=== PATIENT | female | born 1930 | race Caucasian/White ===

== ENCOUNTER 2017-07-22 07:27 | Inpatient (IN) | payer MEDICARE, MEDICAID ==
[~2017-07-22] VITALS: Ht 137.2 cm; Wt 56.2 kg
[2017-07-22 08:31] LABS: HEMOGLOBIN. 9.4 g/dL (12.0-16.0); MEAN CORPUSCULAR HEMOGLOBIN 32.1 pg (28.0-32.0); MEAN CORPUSCULAR VOLUME 96.2 fL (81.0-99.0); MEAN PLATELET VOLUME 7.9 fl (7.4-10.4); PLATELET 111 x1000/uL (130-400); RED BLOOD CELL COUNT 2.92 mill/uL (4.2-5.4); RED CELL DISTRIBUTION WIDTH 14.6 % (11.6-14.6)
[2017-07-22 08:44] LABS: INR 1.1; PARTIAL THROMBOPLASTIN TIME 26.9 sec (23.4-31.0); PROTHROMBIN TIME 11.6 sec (9.4-11.6)
[2017-07-22 08:47] LABS: CARBON DIOXIDE 25 mEq/L (21-32); CHLORIDE 95 mEq/L (98-107); TROPONIN I < 0.02 ng/mL (0.00-0.04)
[2017-07-22 12:15] VITALS: BP 162/46
[2017-07-22 12:30] VITALS: BP 162/46
[2017-07-22] MEDS ORDERED: DOCUSATE SODIUM 100MG CAPSULE PO PRN (15:00)
[2017-07-22] MEDS ORDERED: ONDANSETRON HCL 4MG/2ML VIAL IV PRN (15:00)
[2017-07-22] MEDS ORDERED: LORAZEPAM 2MG/ML CPJ IV PRN (15:00)
[2017-07-22] MEDS ORDERED: MORPHINE SULFATE 10 MG/ML CPJ IV PRN (15:00)
[2017-07-22 16:00] VITALS: BP 175/53
[2017-07-22] MEDS: LISINOPRIL 20MG TABLET PO SCH (16:20)
[2017-07-22] MEDS: THIAMINE HCL 100MG TABLET PO SCH (16:20)
[2017-07-22 17:15] LABS: PLATELET ESTIMATE DECREASED
[2017-07-22] MEDS: HYDROCODONE/ACETAMINOPHEN 5/325MG TABLET PO PRN (19:13)
[2017-07-22] MEDS ORDERED: DEXTROSE 50% WATER 50ML SYRINGE IV PRN (19:30)
[2017-07-22 20:00] VITALS: BP 185/52
[2017-07-22] MEDS: BLOOD SUGAR DIAGNOSTIC STRIP TEST SCH (20:28)
[2017-07-22] MEDS: CLONIDINE 0.1MG TABLET PO PRN (20:31)
[2017-07-22] MEDS: INSULIN LISPRO 100 UNITS/ML SUBCUT SCH (20:32)
[2017-07-22 23:55] VITALS: BP 134/81
[2017-07-23 04:00] VITALS: BP 148/50
[2017-07-23] MEDS: ACETAMINOPHEN 325MG TABLET PO PRN ×2 (04:40→07:39)
[2017-07-23 06:16] LABS: HEMATOCRIT. 27.8 % (36.0-48.0); HEMOGLOBIN. 9.1 g/dL (12.0-16.0); MEAN CORPUSCULAR HEMOGLOBIN 31.9 pg (28.0-32.0); MEAN CORPUSCULAR VOLUME 97.1 fL (81.0-99.0); PLATELET 101 x1000/uL (130-400); RED BLOOD CELL COUNT 2.86 mill/uL (4.2-5.4); RED CELL DISTRIBUTION WIDTH 14.6 % (11.6-14.6)
[2017-07-23] MEDS: BLOOD SUGAR DIAGNOSTIC STRIP TEST SCH ×4 (07:27→20:37)
[2017-07-23] MEDS: INSULIN LISPRO 100 UNITS/ML SUBCUT SCH ×4 (07:28→20:37)
[2017-07-23] MEDS ORDERED: VANCOMYCIN 1 G PREMIX 200 ML IV NR (07:30)
[2017-07-23 07:56] VITALS: BP 95/38
[2017-07-23] MEDS: THIAMINE HCL 100MG TABLET PO SCH (08:16)
[2017-07-23] MEDS: LISINOPRIL 20MG TABLET PO SCH (08:17)
[2017-07-23] MEDS ORDERED: GELATIN SPONGE,ABSORBABLE SZ 100 ONE (09:52)
[2017-07-23] MEDS ORDERED: NORMAL SALINE 0.9% 10 ML SYR ONE (09:53)
[2017-07-23] MEDS ORDERED: BUPIVACAINE HCL/PF 0.5% (5MG/ML) 10ML ONE (09:53)
[2017-07-23] MEDS ORDERED: BACITRACIN ZINC 15GM TUBE TOP ONE (09:53)
[2017-07-23] MEDS ORDERED: THROMBIN (BOVINE) 5000 UNITS/VIAL TOP ONE (09:53)
[2017-07-23] MEDS ORDERED: LIDOCAINE HCL 1% 20ML VIAL (Pyxis) INJ ONE (09:53)
[2017-07-23] MEDS ORDERED: BACITRACIN 50,000 UNITS/VIAL ONE (09:54)
[2017-07-23] MEDS ORDERED: HEPARIN SODIUM 1,000 UNIT/1ML VIAL IV ONE ×2 (10:00→10:28)
[2017-07-23] MEDS ORDERED: FENTANYL CITRATE/PF 50MCG/ML 2ML VIAL ONE (10:58)
[2017-07-23] MEDS ORDERED: ONDANSETRON HCL 4MG/2ML VIAL IV PRN (11:15)
[2017-07-23] MEDS ORDERED: MORPHINE SULFATE 2 MG/ML CPJ (NOT FOR IM USE) IV PRN (11:15)
[2017-07-23] MEDS ORDERED: PROPOFOL 200MG/20ML VIAL IV ONE (12:18)
[2017-07-23 12:55] LABS: PLATELET ESTIMATE DECREASED
[2017-07-23 13:20] VITALS: BP 105/45
[2017-07-23 15:33] VITALS: BP 95/38
[2017-07-23 20:00] VITALS: BP 104/45
[2017-07-24] VITALS (7 sets, daily range): BP systolic 101–189; BP diastolic 35–86
[2017-07-24] MEDS: ACETAMINOPHEN 325MG TABLET PO PRN (04:02)
[2017-07-24 07:05] LABS: MEAN CORPUSCULAR VOLUME 96.9 fL (81.0-99.0); MEAN PLATELET VOLUME 8.3 fl (7.4-10.4); PLATELET 77 x1000/uL (130-400); RED BLOOD CELL COUNT 2.12 mill/uL (4.2-5.4); RED CELL DISTRIBUTION WIDTH 14.4 % (11.6-14.6)
[2017-07-24 07:12] LABS: HEMATOCRIT. 20.5 % (36.0-48.0)
[2017-07-24] MEDS: BLOOD SUGAR DIAGNOSTIC STRIP TEST SCH ×4 (07:40→20:20)
[2017-07-24] MEDS: INSULIN LISPRO 100 UNITS/ML SUBCUT SCH ×4 (08:10→20:21)
[2017-07-24] MEDS: LISINOPRIL 20MG TABLET PO SCH (09:00)
[2017-07-24] MEDS: THIAMINE HCL 100MG TABLET PO SCH (09:00)
[2017-07-24] MEDS ORDERED: LIDOCAINE HCL 1% 20ML VIAL (Pyxis) INJ ONE (10:49)
[2017-07-24] MEDS ORDERED: SODIUM CHLORIDE 0.9% 10ML VIAL ONE (10:49)
[2017-07-24] MEDS ORDERED: SODIUM BICARBONATE 4% (2.4MEQ) 5ML VIAL IV ONE (10:49)
[2017-07-24] MEDS: HYDROCODONE/ACETAMINOPHEN 5/325MG TABLET PO PRN ×2 (13:25→20:20)
[2017-07-24] MEDS: CLONIDINE 0.1MG TABLET PO PRN (20:19)
[2017-07-24] MEDS ORDERED: VANCOMYCIN 1 G PREMIX 200 ML IV SCH (21:00)
[2017-07-24 21:51] LABS: HEMATOCRIT 30.9 % (36.0-48.0); HEMOGLOBIN 10.9 g/dL (12.0-16.0)
[2017-07-24 22:56] LABS: PLATELET ESTIMATE DECREASED
[2017-07-25] VITALS (12 sets, daily range): BP systolic 137–201; BP diastolic 47–65
[2017-07-25 06:01] LABS: HEMATOCRIT. 28.8 % (36.0-48.0); HEMOGLOBIN. 9.9 g/dL (12.0-16.0); MEAN CORPUSCULAR HEMOGLOBIN 32.3 pg (28.0-32.0); MEAN CORPUSCULAR VOLUME 94.1 fL (81.0-99.0); MEAN PLATELET VOLUME 8.7 fl (7.4-10.4); PLATELET 70 x1000/uL (130-400); RED BLOOD CELL COUNT 3.06 mill/uL (4.2-5.4); RED CELL DISTRIBUTION WIDTH 14.4 % (11.6-14.6)
[2017-07-25] MEDS: BLOOD SUGAR DIAGNOSTIC STRIP TEST SCH ×4 (06:13→21:11)
[2017-07-25] MEDS: INSULIN LISPRO 100 UNITS/ML SUBCUT SCH ×4 (07:55→21:00)
[2017-07-25] MEDS: CLONIDINE 0.1MG TABLET PO PRN (09:06)
[2017-07-25] MEDS: THIAMINE HCL 100MG TABLET PO SCH (09:06)
[2017-07-25] MEDS: LISINOPRIL 20MG TABLET PO SCH (09:06)
[2017-07-25] MEDS: ONDANSETRON HCL 4MG/2ML VIAL IV PRN (09:59)
[2017-07-25 10:13] LABS: PLATELET ESTIMATE DECREASED
[2017-07-25] MEDS ORDERED: MORPHINE SULFATE 10 MG/ML CPJ IV PRN (11:00)
[2017-07-25] MEDS ORDERED: LIDOCAINE HCL 1% 20ML VIAL (Pyxis) INJ ONE ×2 (13:30→14:42)
[2017-07-25] MEDS ORDERED: CLINDAMYCIN 600 MG in DEXTROSE 5% WATER 50 ML IV ONE (13:30)
[2017-07-25] MEDS ORDERED: SODIUM BICARBONATE 4% (2.4MEQ) 5ML VIAL IV ONE (13:30)
[2017-07-25] MEDS ORDERED: FENTANYL CITRATE/PF 50MCG/ML 2ML VIAL ONE (14:19)
[2017-07-26] VITALS: BP 101/56
[2017-07-26 04:00] VITALS: BP 136/66
[2017-07-26] MEDS: BLOOD SUGAR DIAGNOSTIC STRIP TEST SCH ×2 (06:21→13:05)
[2017-07-26] MEDS ORDERED: IOHEXOL-300 50 ML BOTTLE IV ONE (07:13)
[2017-07-26 07:33] LABS: HEMATOCRIT. 29.5 % (36.0-48.0); HEMOGLOBIN. 10.1 g/dL (12.0-16.0); MEAN CORPUSCULAR HEMOGLOBIN 32.7 pg (28.0-32.0); MEAN CORPUSCULAR VOLUME 95.7 fL (81.0-99.0); MEAN PLATELET VOLUME 8.3 fl (7.4-10.4); PLATELET 75 x1000/uL (130-400); RED BLOOD CELL COUNT 3.09 mill/uL (4.2-5.4); RED CELL DISTRIBUTION WIDTH 14.5 % (11.6-14.6)
[2017-07-26] MEDS: INSULIN LISPRO 100 UNITS/ML SUBCUT SCH ×2 (07:56→13:05)
[2017-07-26 08:00] VITALS: BP 156/53
[2017-07-26] MEDS: ONDANSETRON HCL 4MG/2ML VIAL IV PRN (09:25)
[2017-07-26] MEDS: LISINOPRIL 20MG TABLET PO SCH (09:26)
[2017-07-26] MEDS: THIAMINE HCL 100MG TABLET PO SCH (09:27)
[2017-07-26 12:00] VITALS: BP 160/59
[2017-07-26 16:00] VITALS: BP 146/52
[2017-07-26 17:23] LABS: PLATELET ESTIMATE DECREASED
[2017-07-26 17:34] VITALS: BP 146/52
== END 2017-07-26 18:35 | disposition home or self-care (01) | DRG 252 ==
LOC: ER 07:27 → EDBEDREQ 08:51 → ENRESERV 09:22 → 7WST 09:52 → SUPCPDRO 10:14 → 7WST 07-24 14:03
PROVIDERS: ADMIT Internal Medicine Nephrology; ATTEND Internal Medicine Nephrology
PROC: 03WY07Z Revision of Autologous Tissue Substitute in Upper Artery, Open Approach (ICD-10-PCS; 2017-07-23)
PROC: 5A1D70Z Performance of Urinary Filtration, Intermittent, Less than 6 Hours Per Day (ICD-10-PCS; principal; 2017-07-23 09:30)
PROC: 5A1D70Z Performance of Urinary Filtration, Intermittent, Less than 6 Hours Per Day (ICD-10-PCS; 2017-07-24)
PROC: 30233N1 Transfusion of Nonautologous Red Blood Cells into Peripheral Vein, Percutaneous Approach (ICD-10-PCS; 2017-07-24)
PROC: 5A1D70Z Performance of Urinary Filtration, Intermittent, Less than 6 Hours Per Day (ICD-10-PCS; 2017-07-25)
PROC: 0JH63XZ Insertion of Tunneled Vascular Access Device into Chest Subcutaneous Tissue and Fascia, Percutaneous Approach (ICD-10-PCS; 2017-07-25)
PROC: 06H033Z Insertion of Infusion Device into Inferior Vena Cava, Percutaneous Approach (ICD-10-PCS; 2017-07-25)
PROC: B5191ZA Fluoroscopy of Inferior Vena Cava using Low Osmolar Contrast, Guidance (ICD-10-PCS; 2017-07-25)
DX: T82.838A Hemorrhage due to vascular prosthetic devices, implants and grafts, initial encounter (principal); N18.6 End stage renal disease; E44.0 Moderate protein-calorie malnutrition; E11.22 Type 2 diabetes mellitus with diabetic chronic kidney disease; E87.1 Hypo-osmolality and hyponatremia; I13.11 Hypertensive heart and chronic kidney disease without heart failure, with stage 5 chronic kidney disease, or end stage renal disease; Z68.29 Body mass index [BMI] 29.0-29.9, adult; Y84.1 Kidney dialysis as the cause of abnormal reaction of the patient, or of later complication, without mention of misadventure at the time of the procedure; D63.8 Anemia in other chronic diseases classified elsewhere; Z99.2 Dependence on renal dialysis; Z79.4 Long term (current) use of insulin; Z88.0 Allergy status to penicillin; Z79.899 Other long term (current) drug therapy; Y92.89 Other specified places as the place of occurrence of the external cause
CPT/HCPCS: 36415; 36556; 36558; 71010; 76937; 77001; 80048; 80053; 80202; 82962; 83735; 84100; 84484; 85014; 85018; 85025; 85610; 85730; 86850; 86900; 86920; 93005; 99285; A4216; C1750; C1752; C1769; C1887; J1642; J1644; J1815; J2270; J2405; J2704; J3010; J3370; J3490; J7050; P9016; Q9967

== ENCOUNTER → 2017-07-22 | Emergency (ER) | payer SELFPAY | LOC: ER 07:27 | DX: R06.02 Shortness of breath (principal); Z53.21 Procedure and treatment not carried out due to patient leaving prior to being seen by health care provider | CPT/HCPCS: 93005 ==

== ENCOUNTER 2017-08-04 13:05 | Emergency (ER) | payer MEDICARE, MEDICAID ==
[~2017-08-04] VITALS: Ht 134.6 cm; Wt 53.0 kg
[2017-08-04 13:22] VITALS: BP 172/61
== END 2017-08-04 14:52 | disposition home or self-care (01) ==
LOC: ER 14:28
DX: Z48.02 Encounter for removal of sutures (principal); E11.22 Type 2 diabetes mellitus with diabetic chronic kidney disease; N18.6 End stage renal disease; I25.10 Atherosclerotic heart disease of native coronary artery without angina pectoris; E78.00 Pure hypercholesterolemia, unspecified; E03.9 Hypothyroidism, unspecified; M19.90 Unspecified osteoarthritis, unspecified site; Z88.0 Allergy status to penicillin; Z99.2 Dependence on renal dialysis
CPT/HCPCS: 99281